=== PATIENT | male | born 1990 | race Caucasian/White ===

== ENCOUNTER 2021-04-06 11:55 | Emergency (ER) | payer OTHER, BC ==
[2021-04-06] MEDS ORDERED: Diphtheria,Pertussis(Acell),Tetanus Vaccine 0.5 ML Syringe IM ONE (11:57)
[2021-04-06 12:18] VITALS: BP 163/95; PULSE 96
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
--- NOTE | 2021-04-06 12:57 | CR ---
Indication: Pain Comparison: None available. Technique: Standing AP, lateral, and sunrise views left knee were obtained Findings: There is no displaced fracture or dislocation. There is mild medial compartmental joint space narrowing with minimal tibial spine spurring. There is mild prepatellar soft tissue swelling. Impression: Mild prepatellar soft tissue swelling and early degenerative change in the medial compartment without displaced fracture. Dictated by Cisco Granger MD @ 04/06/2021 12:54:[address] Cisco Granger @ Apr 06 2021 12:54PM
== END 2021-04-06 12:36 | disposition home or self-care (01) ==
LOC: MW.ED 11:55
DX: S80.02XA Contusion of left knee, initial encounter (principal); S50.812A Abrasion of left forearm, initial encounter; Z72.0 Tobacco use; V29.9XXA Motorcycle rider (driver) (passenger) injured in unspecified traffic accident, initial encounter
CPT/HCPCS: 73562-26-LT; 73562-LT; 99284-25

== ENCOUNTER 2025-05-27 00:06 | Emergency (ER) | payer BC, OTHER ==
[2025-05-27] MEDS: Lidocaine 1% with EPINEPHrine 1:100,000 10 ML MDV INFILT ONE (00:24)
[2025-05-27] MEDS: Diphtheria,Pertussis(Acell),Tetanus Vaccine 0.5 ML Syringe IM ONE (00:46)
[2025-05-27] MEDS: Amoxicillin/Clavulanate K 875-125 MG Tab PO ONE (01:24)
[2025-05-27 01:37] VITALS: BP 164/100; PULSE 72
== END 2025-05-27 01:40 | disposition home or self-care (01) ==
LOC: MW.ED 00:06
DX: S01.411A Laceration without foreign body of right cheek and temporomandibular area, initial encounter (principal); Z23 Encounter for immunization; Z79.899 Other long term (current) drug therapy; Y04.0XXA Assault by unarmed brawl or fight, initial encounter; Y93.89 Activity, other specified
CPT/HCPCS: 12014; 90471; 90715; 99282; A9270; J2004; 99284